=== PATIENT | female | born 1945 | race Caucasian/White ===

== ENCOUNTER 2020-01-01 08:39 | Observation (INO) ==
--- NOTE | 2019-12-29 15:50 | Anesthesiology Consultation ---
Date of Service December 29, 2019 Assessment & Plan (1) Encounter for pre-operative examination: COVID Status: As of 12/28 nurse assessment, patient denies travel to endemic area, known exposure/sick contacts, or symptoms of COVID19. Preoperative COVID19 testing completed on 12/26 at [facility], results NEGATIVE. EKG AM DOS Chart Review Chart Review: Acceptable Risk for Surgery and Patient NOT seen in Pre Admission Testing History Surgery Operation Date: 01/01/20 07:00 Proposed Procedures p Endoscopic Retrograde Cholangiopancreato - Scotty Savage MD s Endoscopic Ultrasonography Upper - Scotty Savage MD Height/Weight Height: 5 ft 2 in Weight: 45.813 kg Allergies Allergy/AdvReac Type Severity Reaction Status Date / Time No Known Allergies Allergy Verified 12/29/19 15:17 Medications Home Medications Medication Instructions Recorded Confirmed Last Taken atorvastatin [Lipitor] 20 mg PO PM 12/29/19 12/29/19 Unknown omeprazole 20 mg PO BID 12/29/19 12/29/19 Unknown Past Medical History Medical History (Updated 12/29/19 @ 15:49 by Juan Rodriguez) Gallbladder & bile duct stone with obstruction Pancreatic mass Prediabetes NO MEDICATION FOR THIS Past Surgical History Surgical History (Updated 12/29/19 @ 15:22 by Lyric William RN) H/O wrist surgery LEFT Social History Smoking Status: Never smoker Do You Dip or Chew Tobacco: No Hx Alcohol Use: No Hx Substance Use: No substance use type: does not use Testing Laboratory Results 12/27/19 WBC: 9.70 H/H: 12.4/36.7 PLATELETS: 256 SODIUM: 138 POTASSIUM: 4.1 CHLORIDE: 98 CO2: 26 BUN: 21 CREATININE: 0.80 GLUCOSE: 141 PT: 13.5 INR: 1.02
[~2020-01-01 08:39] MED LIST: IOVERSOL 50ml IV ONE; LR 15ML/HR IV SCH
--- NOTE | 2020-01-01 08:56 | History & Physical Report ---
Date of Service January 01, 2020 Assessment & Plan (1) Encounter for pre-operative examination: History of Present Illness Primary Care Provider: Toi Harrison Patient with obstructive jaundice, pancreatic head mass, needs EUS/ERCP Allergies Allergy/AdvReac Type Severity Reaction Status Date / Time No Known Allergies Allergy Verified 12/29/19 15:17 Home Medications Home Medications Medication Instructions Recorded Confirmed Type atorvastatin [Lipitor] 20 mg PO PM 12/29/19 12/29/19 History omeprazole 20 mg PO BID 12/29/19 12/29/19 History Past Med/Surg History Medical History (Updated 12/29/19 @ 15:49 by Juan Rodriguez) Gallbladder & bile duct stone with obstruction Pancreatic mass Prediabetes NO MEDICATION FOR THIS Surgical History (Updated 12/29/19 @ 15:22 by Lyric William RN) H/O wrist surgery LEFT Social History Smoking Status: Never smoker Second Hand Exposure: Yes (25 YEARS AGO SMOKED); Do You Dip or Chew Tobacco: No; Hx Alcohol Use: No Hx Substance Use: No Preferred Language: Guatemalan Beliefs That Will Affect Care: None Current Living Situation: Alone Feels Safe at Home: Yes Safety Concerns: Feels Safe At This Time Assistive Devices: Glasses Review of Systems All systems reviewed & are unremarkable except as noted in HPI & below Physical Exam Constitutional: comfortable; no acute distress Respiratory: normal respiratory effort, lungs clear to auscultation Cardiovascular: RRR, no murmur, no edema Gastrointestinal (Abdomen): normal bowel sounds, soft, nontender, no hepatosplenomegaly
[2020-01-01] MEDS ORDERED: ONDANSETRON INJ 2 MG/ML 2 ML VIAL IV PRN ×2 (11:10→17:12)
[2020-01-01] MEDS ORDERED: ATROPINE SULFATE 0.1 MG/ML 10ML SYR IV PRN (11:10)
[2020-01-01] MEDS ORDERED: ePHEDrine sulfate 50 MG/ML AMP IV PRN (11:10)
[2020-01-01] MEDS ORDERED: fentaNYL citrate 100 MCG/2 ML VIAL IV PRN (11:10)
[2020-01-01] MEDS ORDERED: CIPROFLOXACIN 400MG / 200ML D5W IV ONE (11:37)
[2020-01-01] MEDS ORDERED: INDOMETHACIN 50 MG SUPP PR ONE (11:57)
[2020-01-01] MEDS ORDERED: fentaNYL citrate 100 MCG/2 ML VIAL ONE (12:13)
[2020-01-01] MEDS ORDERED: ONDANSETRON INJ 2 MG/ML 2 ML VIAL ONE (13:13)
[2020-01-01] MEDS ORDERED: DEXAMETHASONE SOD INJ 4 MG/ML VIAL ONE (13:13)
[2020-01-01] MEDS ORDERED: NEOSTIGMINE METHYLSULFATE 5 MG/5 ML SYR ONE (13:13)
[2020-01-01] MEDS ORDERED: PROPOFOL IV EMULSION 10 MG/ML 20 ML VIAL IV ONE (13:13)
[2020-01-01] MEDS ORDERED: GLYCOPYRROLATE 0.2 MG/ML VIAL ONE (13:13)
[2020-01-01] MEDS ORDERED: HEPARIN SOD (PORCINE) 1000 UNIT/ML 10 ML VIAL ONE (13:20)
--- NOTE | 2020-01-01 15:25 | Operative Report ---
Post Operative Report Pre & Post Diagnosis Operation Date: 01/01/20 07:00 Pre-Op Diagnosis: Jaundice, RUQ Abdominal Pain Post-Op Diagnosis: Jaundice, RUQ Abdominal Pain I identified the patient and participated in the time-out.: Yes Procedure Operation Date: 01/01/20 07:00 Actual Procedures p Endoscopic Retrograde Cholangiopancreatography - Scotty Savage MD s Endoscopic Ultrasonography Upper - Scotty Savage MD Surgeon Scotty Savage MD Survey Research Associate None Estimated Blood Loss 0 Findings See Below (4 cm pancreatic head mass with complete biliary obstruction.) Specimens Panc mass FNA Description of Procedure EUS/ ERCP I attest to the content of the Intraoperative Record and any orders documented therein. Any exceptions are noted below.
--- NOTE | 2020-01-01 15:37 | GI REPORT ---
Patient Name: Ainsley Borden Procedure Date: 01/01/2020 8:52 AM Date of : 1945 Admit Type: Preadmit Age: 74 Gender: Female Attending MD: Scotty Savage MD Procedure: Upper GI endoscopy Providers: Scotty Savage MD Referring MD: Sharonda Pinedo Md, Zamzam Brumfield Indications: Epigastric abdominal pain Medicines: Propofol per Anesthesia Complications: No immediate complications. Estimated Blood Loss: Estimated blood loss: none. Procedure: Pre-Anesthesia Assessment: - Prior to the procedure, a History and Physical was performed, and patient medications, allergies and sensitivities were reviewed. The patient's tolerance of previous anesthesia was reviewed. - The risks and benefits of the procedure and the sedation options and risks were discussed with the patient. All questions were answered and informed consent was obtained. - Patient identification and proposed procedure were verified prior to the procedure by the physician and the nurse. The procedure was verified in the procedure room. - Pre-procedure physical examination revealed no contraindications to sedation. After obtaining informed consent, the endoscope was passed under direct vision. Throughout the procedure, the patient's blood pressure, pulse, and oxygen saturations were monitored continuously. The Endoscope was introduced through the mouth, and advanced to the second part of duodenum. The upper GI endoscopy was accomplished without difficulty. The patient tolerated the procedure well. Findings: Two 3 mm polyps were found in the upper third of the esophagus, likely esophageal squamous papilloma. The polyp was removed with a cold biopsy forceps. Resection and retrieval were complete. Verification of patient identification for the specimen was done by the physician and nurse using the patient's name and date. The entire examined stomach was normal. The duodenal bulb and second portion of the duodenum were normal. 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 Resected and retrieved. - Normal stomach. - Normal duodenal bulb and second portion of the duodenum. Recommendation: - Perform an upper endoscopic ultrasound (UEUS) today. Scotty Savage MD 01/01/2020 3:37:22 PM This report has been signed electronically. Note Initiated On: 01/01/2020 8:52 AM Number of Addenda: 0 I attest to the content of the Intraoperative Record and orders documented therein, exceptions below {[id number]}
--- NOTE | 2020-01-01 16:02 | Fluoroscopy Report ---
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 There is cannulation of the common bile duct. Injection of co ntrast into the biliary tree. There is moderate intrahepatic biliary ductal dilation with dilation of the common bile duct measuring up to approximately 1.6 cm transversely. There is marked narrowing wi thin the mid to distal common bile duct suggestive of a stricture. Subsequent images demonstrate plac ement of a common bile duct stent which appears to be in satisfactory positioning. There is contrast noted within the duodenum. Contrast is also noted to the right of the common bile duct which appears to be within the gallbladder lumen. IMPRESSION: Fluoroscopic assistance as above. Please see procedural report for further details. ACT 112: Negative or not required by law. The above report was generated using voice recognition software. It may contain grammatical, syntax o r spelling errors. Electronically signed by: Flaco Fischer M.D. 01/01/2020 4:00 PM
[2020-01-01] MEDS ORDERED: IOVERSOL 50ml IV ONE (16:08)
--- NOTE | 2020-01-01 16:13 | Anesthesiology Progress Note ---
Date of Service January 01, 2020 Anesthesia Post Procedure Vital Signs Vital Signs: Temp Pulse Pulse Resp BP BP Pulse Ox 01/01/20 16:00 57 L 17 122/71 99 01/01/20 15:50 57 L 17 123/73 99 01/01/20 15:40 36.4 C L 60 18 124/72 100 01/01/20 10:47 36.8 C 70 18 133/76 99 Transfer of Care Handoff Completed per policy Notes Mental Status: alert / awake / arousable Patient Amnestic to Procedure: Yes Nausea / Vomiting: adequately controlled Pain: adequately controlled Airway Patency, RR, SpO2: stable & adequate BP & HR: stable & adequate Hydration State: stable & adequate Anesthetic Complications: no major complications apparent
[2020-01-01] MEDS ORDERED: PIPERACILL/TAZOBAC CONSULT ACTIVE PRN (16:26)
--- NOTE | 2020-01-01 16:27 | GI REPORT ---
Patient Name: Ainsley Borden Procedure Date: 01/01/2020 8:51 AM Date of : 1945 Admit Type: Preadmit Age: 74 Gender: Female Attending MD: Scotty Savage MD Procedure: Upper EUS Providers: Scotty Savage MD Referring MD: Sharonda Johnson Md Indications: Abnormal ultrasound of the abdomen, Suspected solid pancreatic neoplasm Medicines: General Anesthesia Complications: No immediate complications. Estimated Blood Loss: Estimated blood loss: none. Procedure: Pre-Anesthesia Assessment: - Prior to the procedure, a History and Physical was performed, and patient medications, allergies and sensitivities were reviewed. The patient's tolerance of previous anesthesia was reviewed. - The risks and benefits of the procedure and the sedation options and risks were discussed with the patient. All questions were answered and informed consent was obtained. - Patient identification and proposed procedure were verified prior to the procedure by the physician and the nurse. The procedure was verified in the procedure room. - Pre-procedure physical examination revealed no contraindications to sedation. After obtaining informed consent, the endoscope was passed under direct vision. Throughout the procedure, the patient's blood pressure, pulse, and oxygen saturations were monitored continuously. The scope was introduced through the mouth, and advanced to the second part of duodenum. The upper EUS was accomplished without difficulty. The patient tolerated the procedure well. Findings: ENDOSONOGRAPHIC FINDING: : There was no sign of significant endosonographic abnormality in the ampulla. No mucosal masses were identified. There was dilation in the common bile duct which measured up to 26 mm. There is a complete cutt off of the distal duct due to invasion by the large HOP mass. Extensive hyperechoic material consistent with sludge was visualized endosonographically in the common bile duct and in the gallbladder. There was dilation diffusely throughout the intrahepatic bile duct(s). There was no sign of significant endosonographic abnormality in the visualized portion of the liver. A round mass was identified in the pancreatic head. The mass was hypoechoic. The mass measured 42 mm by 30 mm in maximal cross-sectional diameter. The endosonographic borders were well-defined. There was sonographic evidence suggesting invasion into the portal vein (manifested by invasion), the superior mesenteric vein (manifested by abutment) and the duodenum. Visualization of the SMA was limited due to the large size of the mass however no clear invasion seen. The remainder of the pancreas was examined. The endosonographic appearance of parenchyma and the upstream pancreatic duct indicated a maximum duct diameter of 6.5 mm and parenchymal atrophy. Fine needle biopsy was performed. Color Doppler imaging was utilized prior to needle puncture to confirm a lack of significant vascular structures within the needle path. Five passes were made with the 25 gauge ClariFI EchoTip Ultra biopsy needle using a transduodenal approach. A visible core of tissue was obtained. The cellularity of the specimen was adequate. Final cytology results are pending. Verification of patient identification for the specimen was done by the physician and nurse using the patient's name and date. This was staged T3 N0 Mx by endosonographic criteria. The staging applies if malignancy is confirmed. There was no sign of significant endosonographic abnormality in the visualized portion of the left adrenal gland. There was no sign of significant endosonographic abnormality involving the celiac trunk. Impression: - A 4 cm mass was identified in the pancreatic head. Tissue was obtained from this exam. The preliminary diagnosis is suspicious for adenocarcinoma. Fine needle biopsy performed. - There was dilation in the common bile duct which measured up to 26 mm. Complete invasion of the entire distal duct by the mass. - Hyperechoic material consistent with sludge was visualized endosonographically in the common bile duct and in the gallbladder. - There was dilation in the intrahepatic bile ducts, diffusely. - There was no evidence of significant pathology in the visualized portion of the liver. - Endosonographic images of the left adrenal gland were unremarkable. - The celiac trunk was endosonographically normal. Recommendation: - Await cytology results. - Perform an ERCP today. Scotty Savage MD 01/01/2020 4:26:36 PM This report has been signed electronically. Note Initiated On: 01/01/2020 8:51 AM Number of Addenda: 0 I attest to the content of the Intraoperative Record and orders documented therein, exceptions below {[id number]}
[2020-01-01] MEDS ORDERED: ALUMINUM/MAGNESIUM SUSP 30 ML UDC PO PRN (17:12)
[2020-01-01] MEDS ORDERED: MAGNESIUM HYDROXIDE SUSP 30 ML UDC PO PRN (17:12)
[2020-01-01] MEDS ORDERED: ACETAMINOPHEN 325 MG TAB PO PRN (17:12)
[2020-01-01] MEDS ORDERED: POLYETHYLENE (MIRALAX) 17 GM PACK PO PRN (17:12)
--- NOTE | 2020-01-01 17:22 | GI REPORT ---
Patient Name: Ainsley Borden Procedure Date: 01/01/2020 8:52 AM Date of : 1945 Admit Type: Preadmit Age: 74 Gender: Female Attending MD: Scotty Savage MD Procedure: ERCP Providers: Scotty Savage MD Referring MD: Sharonda Pinedo Md, Zamzam Brumfield Indications: Abnormal endoscopic ultrasound of the biliary system, Jaundice, Malignant tumor of the head of pancreas, Bile duct stricture Medicines: General Anesthesia Complications: No immediate complications. Estimated Blood Loss: Estimated blood loss: none. Procedure: Pre-Anesthesia Assessment: - Prior to the procedure, a History and Physical was performed, and patient medications, allergies and sensitivities were reviewed. The patient's tolerance of previous anesthesia was reviewed. - The risks and benefits of the procedure and the sedation options and risks were discussed with the patient. All questions were answered and informed consent was obtained. - Patient identification and proposed procedure were verified prior to the procedure by the physician and the nurse. The procedure was verified in the procedure room. - Pre-procedure physical examination revealed no contraindications to sedation. After obtaining informed consent, the scope was passed under direct vision. Throughout the procedure, the patient's blood pressure, pulse, and oxygen saturations were monitored continuously. The Scope was introduced through the mouth, and advanced to the duodenum without successful cannulation. The patient tolerated the procedure well. The ERCP was technically difficult and complex due to difficulty passing guidewires through biliary ductal stenosis. Findings: The quality control chemist film was normal. The esophagus was successfully intubated under direct vision. The scope was advanced to a normal major papilla in the descending duodenum without detailed examination of the pharynx, larynx and associated structures, and upper GI tract. The upper GI tract was grossly normal. The bile duct could not be cannulated with the short-nosed traction sphincterotome and guidewire despite multiple attempt and despite deep engagement of the sphincterotome in the ampulla. Contrast was injected and the was extravasation of contrast without filling of the duct suggestive of a false tract. Because deep biliary cannulation and wire passage towards the proximal extent of the bile duct was attempted but not achieved, preparations were made for a rendezvous maneuver. The duodenoscope was removed and exchanged for a therapeutic echoendoscope, which was inserted. The extrahepatic bile duct was punctured using a 19 gauge needle under endosonographic and radiologic guidance through a transduodenal approach. Bile was aspirated. Next, the bile duct was injected with contrast, and a cholangiogram was obtained under fluoroscopy. Contrast extended to the left and right intrahepatic bile ducts. The distal common bile duct was completely obstructed with no flow of contrast into the duodenum. A 0.035 inch straight standard wire was passed anterograde through the needle but failed to traverse the obstruction. Given that the tumor is locally advanced and unresectable and enough length of the common bile duct above the stricture, decision was made to perform EUS guided bile duct drainage. The needle was removed and the puncture area was successfully dilated with a 4 mm balloon dilator. One 10 mm by 6 cm covered metal biliary stent (Viabil) was placed into the common bile duct. Black bile and sludge flowed through the stent. The stent was in good position. I personally interpreted the fluoroscopy images. Impression: - Complete obstruction of the distal common bile duct due to a large infiltrating HOP mass. Failed bile duct cannulation due to the long stricture. - Biliary rendezvous performed however neither contrast nor the guidewire could pass through the stricture into the duodenum. - EUS guided transduodenal biliary drainage (choledochoduodenostomy) performed and a 6 cm fully covered metal biliary stent was placed into the common bile duct. Recommendation: - Admit the patient to [facility] for observation till tomorrow in view of current illness. - Clear liquid diet today. - Perform CT scan (computed tomography) of the chest and abdomen (pancreas protocol for staging) with contrast today for staging. - Refer to an oncologist and surgical oncology as OP. - IV Hydration. - Start IV Zosyn while in the hospital. - Repeat Labs (CBC,CMP) tomorrow. Scotty Savage MD 01/01/2020 5:21:57 PM This report has been signed electronically. Note Initiated On: 01/01/2020 8:52 AM Number of Addenda: 0 I attest to the content of the Intraoperative Record and orders documented therein, exceptions below {[id number]}
--- NOTE | 2020-01-01 17:40 | History & Physical Report ---
Date of Service January 01, 2020 Assessment & Plan (1) RUQ pain: (2) Jaundice: This is a 74yo F with a PMH of HLD and recent RUQ and jaundice who was evaluated via ERCP today due to concern for pancreatic adenocarcinoma. -S/p EUS/ERCP - found to have complete obstruction of the distal common bile duct due to large infiltrating mass and is s/p biliary stent placement -Observation med/surg for continued work-up and CT scans for staging purposes -Continue IV fluids and IV Zosyn. Clear liquid diet. Repeat CBC and CMP in the morning -Needs to be referred to oncology and surgical oncology as outpatient -GI service consulted (3) HLD (hyperlipidemia): Continue statin (4) Prediabetes: A1c of 5.7. Not on home medications. Repeat glucose on CMP in AM DVT Ppx: SCDs Code status: FULL PCP: Rusty Dispo: Observation med/surg. Plan to return home once medically stable. Patient seen in collaboration with Dr. Abdul. Please see addendum. History of Present Illness Chief Complaint: abd pain, jaundice Primary Care Provider: Sharonda Pinedo MD This is a 74yo F with a PMH of HLD and persistent abdominal discomfort who was evaluated via ERCP today. Follows with Dr. Ojeda in clinic and had been experiencing months of abdominal discomfort and nausea with ~10 pound weight loss in the past month. Patient's daughter also noted jaundice within the last few weeks with dark urine and pale stool. Outpatient RUQ with pancreatic mass with biliary ductal dilatation and main pancreatic ductal dilatation highly concerning for pancreatic adenocarcinoma. Underwent ERCP today and found to have complete obstruction of the distal common bile duct due to large infiltrating mass and is s/p biliary stent placement. Patient was admitted to [facility] for continued work-up and CT scans for staging purposes as well as IV fluids and IV Zosyn. Clear liquid diet. Repeat CBC and CMP in the morning. When evaluated on the floor, patient is comfortable. Minimal RUQ pain. Denies fever, chills, headache, lightheadedness, visual changes, cough, chest pain, palpitations, shortness of breath, nausea, vomiting, dysuria, constipation or diarrhea. Allergies Allergy/AdvReac Type Severity Reaction Status Date / Time No Known Allergies Allergy Verified 01/01/20 10:42 Home Medications Home Medications Medication Instructions Recorded Confirmed Type atorvastatin [Lipitor] 20 mg PO PM 12/29/19 01/01/20 History omeprazole 20 mg PO BID 12/29/19 01/01/20 History Past Med/Surg History Medical History HLD (hyperlipidemia) Osteopenia Prediabetes NO MEDICATION FOR THIS A1C 5.7 Surgical History H/O wrist surgery LEFT Family History Father Colorectal cancer Social History Smoking Status: Never smoker Second Hand Exposure: Yes (25 YEARS AGO SMOKED); Do You Dip or Chew Tobacco: No; Hx Alcohol Use: No Hx Substance Use: No Preferred Language: [place] Beliefs That Will Affect Care: None marital status: / Current Living Situation: Alone Feels Safe at Home: Yes Safety Concerns: Feels Safe At This Time Assistive Devices: Glasses Review of Systems Review of Systems: At least ten systems reviewed and negative except as noted in the HPI. Physical Exam Physical Exam: General Appearance: vitals as above, NAD, sitting up in bed, conversing easily, thin Head: normocephalic, atraumatic Eyes: normal inspection, PERRL, conjunctivae normal +icteric sclerae ENT: external ear and nose normal, oropharynx normal Neck: normal visual inspection, trachea midline, no thyromegaly Respiratory: normal respiratory effort, coarse breath sounds bilateral bases R>L. No accessory muscle use Cardiovascular: regular rate, rhythm, no murmur, normal peripheral pulses, no BLE edema. Vessels: no JVD Chest: normal inspection of chest Abdomen/GI: normal bowel sounds, soft, mild RUQ TTP, no guarding, no hepatosplenomegaly Extremities/Musculoskeletal: no cyanosis or clubbing, extremities motor strength 5/5 Neurologic: PERRL, EOMI, accommodation nl, no face palsy, no dysarthria, CN's II-XI intact bilaterally and moves all extremities Psychiatric: A+Ox3, euthymic affect Skin: no rashes, warm/dry, +jaundice Results & Data Results & Data ([facility]) Vital Signs (Past 12 Hours) Vital Signs Temp Pulse Pulse Resp BP BP Pulse Ox 01/01/20 17:30 62 18 109/66 96 01/01/20 17:15 63 18 116/69 96 01/01/20 17:00 65 17 106/60 95 01/01/20 16:45 67 17 108/55 L 96 01/01/20 16:30 65 17 115/69 96 01/01/20 16:20 36.4 C L 59 L 17 117/69 95 01/01/20 16:10 60 17 119/67 96 01/01/20 16:00 57 L 17 122/71 99 01/01/20 15:50 57 L 17 123/73 99 01/01/20 15:40 36.4 C L 60 18 124/72 100 01/01/20 10:47 36.8 C 70 18 133/76 99 Laboratory Results BMP 01/01/20 18:24 Creatinine 0.62 Code Status & VTE Plan VTE Prophylaxis Plan VTE Prophylaxis will be ordered: Yes Supervising Physician Co-Signing Physician Notes Attending Addendum: care coordinated with REY Robison please refer to her notes for full details, I agree with her notes patient seen and examined, records reviewed by myself as well on exam, patient seen resting in bed, comfortable, alert, oriented x 3 states she feels fine overall denies abdominal pain, nausea/vomiting, chest pain, dyspnea, cough no other symptoms VS noted and reviewed oriented x 3 , not in distress, speaks in sentences with no effort nor accessory muscle use normal rate, regular rhythm, no murmurs clear breath sounds bilaterally non distended, soft, nontender no bipedal edema, erythema, warmth no neuro deficits (+) jaundiced Crea 0.62 ASSESSMENT AND PLAN> COMMON BILE DUCT OBSTRUCTION, PANCREATIC HEAD MASS s/p ERCP, Biliary stent placement 01/01/[address] chest and abdomen per GI other diagnoses and plan of care as per REY Robison's notes Juan Abdul MD
[2020-01-01] MEDS ORDERED: PIPERACILLIN/TAZOBACTAM 3.375 GM in DEXTROSE 5% 100 ML IV ONE (18:15)
[2020-01-01 18:53] LABS: Creatinine Clr Calc Pharmacy 57.6 ml/min; Est GFR (Non-African American) 88.8
[2020-01-01] MEDS ORDERED: traMADol HCL 50 MG TABLET PO PRN (19:23)
[2020-01-01] MEDS: LACTATED RINGER'S 1,000 ML IV SCH (20:05)
--- NOTE | 2020-01-01 20:20 | XRay Report ---
XR chest 1V portable HISTORY: 74 years-old Female coarse breath sounds acute jaundice COMPARISON: None TECHNIQUE: Portable AP view the chest FINDINGS: Cardiac silhouette is mildly enlarged. Mild interstitial coarsening, likely chronic. No pneumothorax, pleural effusion, airspace consolidation or overt pulmonary edema. Degenerative changes of the shoul ders and spine. IMPRESSION: No acute process. ACT 112: Negative or not required by law. The above report was generated using voice recognition software. It may contain grammatical, syntax o r spelling errors. Electronically signed by: Flaco Fischer M.D. 01/01/2020 8:19 PM
[2020-01-01] MEDS ORDERED: IOVERSOL 100ml IV ONE (21:30)
--- NOTE | 2020-01-01 22:34 | Electrocardiogram Report ---
Test Reason : Blood Pressure : / mmHG Vent. Rate : 070 BPM Atrial Rate : 070 BPM P-R Int : 126 ms QRS Dur : 084 ms QT Int : 408 ms P-R-T Axes : 037 062 060 degrees QTc Int : 440 ms Normal sinus rhythm Nonspecific T wave abnormality No previous ECGs available Confirmed by Thomas Rdz ([id number]) on 01/01/2020 10:33:50 PM Referred By: Scotty Savage Confirmed By:Thomas Rdz
[2020-01-01] MEDS: PIPERACILLIN/TAZOBACTAM 3.375 GM in DEXTROSE 5% 100 ML IV SCH (23:35)
[2020-01-02] MEDS: LACTATED RINGER'S 1,000 ML IV SCH ×2 (03:36→10:10)
[2020-01-02] MEDS ORDERED: CIPROFLOXACIN / D5W 400 MG/200 ML BAG IV SCH (06:00)
[2020-01-02 06:21] LABS: Basophils # (auto) 0.01 K/uL (0-0.2); Basophils % (auto) 0.1 %; Hematocrit (blood only) 32.2 % (37-47); Hemoglobin 10.4 g/dL (12.0-16.0); Immature Granulocytes # (auto) 0.05 K/uL (0.00-0.02); Immature Granulocytes % (auto) 0.4 %; Lymphocytes # (auto) 1.13 K/uL (1.2-3.4); Lymphocytes % (auto) 9.2 %; Mean Corpuscular Hemoglobin 29.8 pg (25-34); Mean Corpuscular Hgb Conc 32.3 g/dL (32-36); Mean Corpuscular Volume 92.3 fL (80-100); Monocytes # (auto) 1.74 K/uL (0.11-0.59); Monocytes % (auto) 14.2 %; Neutrophils # (auto) 9.31 K/uL (1.4-6.5); Neutrophils % (auto) 76.1 %; Platelet Count 254 K/uL (130-400); RDW Standard Deviation 56.9 fL (36.4-46.3); Red Blood Count 3.49 M/uL (4.2-5.4); White Blood Count 12.24 K/uL (4.8-10.8)
[2020-01-02 07:04] LABS: Albumin Globulin Ratio 0.5 (0.9-2); Albumin Level 1.8 gm/dl (3.4-5.0); BUN Creatinine Ratio 21.6 (10-20); Bilirubin,Total 12.6 mg/dl (0.2-1); Calcium 8.5 mg/dl (8.5-10.1); Creatinine Clr Calc Pharmacy 67.4 ml/min; Est GFR (African American) 108.4; Est GFR (Non-African American) 93.5; Globulin 3.3 gm/dl (2.5-4.0); Potassium 3.8 mmol/L (3.5-5.1); Total Protein 5.1 gm/dl (6.4-8.2)
[2020-01-02] MEDS: PIPERACILLIN/TAZOBACTAM 3.375 GM in DEXTROSE 5% 100 ML IV SCH (07:42)
--- NOTE | 2020-01-02 07:49 | CT Scan Report ---
CHEST CT WITH CONTRAST CT DOSE: 414.63 mGy.cm HISTORY: Jaundice. Pancreatitis. r/o metastatic dz TECHNIQUE: Multiaxial CT images of the chest were performed following the intravenous administration of contrast. A dose lowering technique was utilized adhering to the principles of ALARA. COMPARISON: None. FINDINGS: No suspicious lytic or blastic osseous lesions. Small amount of fluid and a small amount of pneumoperitoneum is noted. This is better appreciated on the same day abdomen and pelvis CT. There a ppears to be pneumobilia. The visualized spleen is unremarkable. A few subcentimeter thyroid nodules. These are of doubtful clinical significance. No mediastinal or hilar lymphadenopathy. The heart is n ormal in size. No pleural or pericardial effusions. The main pulmonary arteries are patent. Normal ca liber thoracic aorta with no evidence for dissection. No axillary lymphadenopathy. Mild body wall jaylin ma. Normal caliber esophagus. Bibasilar linear densities favor subsegmental atelectasis or scarring. Scattered calcified granulomas are noted within the lungs. No pneumothorax. The central airways are p atent. No suspicious pulmonary nodules identified. IMPRESSION: 1. Pneumoperitoneum. This is better appreciated on the same day abdomen and pelvis CT. 2. No evidence for metastatic disease within the chest. ACT 112: Negative or not required by law. Electronically signed by: Helder Holland M.D. 01/02/2020 7:48 AM
--- NOTE | 2020-01-02 08:33 | CT Scan Report ---
CT OF THE ABDOMEN AND PELVIS WITH CONTRAST CLINICAL HISTORY: Grade mass. Evaluate for metastatic disease. COMPARISON STUDY: None. TECHNIQUE: Following IV administration of 93 mL of Optiray-320, axial images of the abdomen and pelvi s were obtained from the lung bases to the proximal femurs. Images were reviewed in the axial, sagitt al, and coronal planes. IV contrast was administered without complication. Automated exposure contro l was utilized for the study. A dose lowering technique was utilized adhering to the principles of A AYESHA. Oral contrast was administered. FINDINGS: Please note that the chest CT will be reported separately. No suspicious hepatic lesions ar e present. A 5 mm subcapsular right hepatic lobe lesion is too small to characterize but likely refle cts a cyst. Pneumobilia is expected. Mild to moderate intrahepatic biliary ductal dilatation is prese nt. Note is made of a metallic stent which extends from the duodenum to the extrahepatic common bile duct. This appears appropriately positioned. Multiple locules of extraluminal gas is noted. This is p redominantly retroperitoneal in location. Infiltration and a small amount of fluid centered on the pa ncreatic head extending into the right anterior pararenal space is also noted. There is trace ascites . No rim-enhancing fluid collection is noted. Note is made of dilatation of the pancreatic duct which measures 1 cm in caliber. There is contrast within the pancreatic duct with abrupt caliber change at the level the pancreatic head. There is suggestion of a subtle hypodense pancreatic head mass that m easures approximately 3.7 cm. The main, left and right portal veins are patent. Evaluation for metast atic disease is somewhat difficult given peripancreatic infiltration however superior mesenteric spring ry is not encased. The main, left and right portal veins are patent. No abdominal or pelvic lymphaden opathy is present. There is no evidence for a bowel obstruction. There is contrast within the latter. Note is made of a 2 cm fibroid. No suspicious osseous lesions are present. Major vasculature is simental nt. There is no hydronephrosis. Note is made of a 7 mm suspected left renal cyst. IMPRESSION: 1. Pancreatic head mass, measuring approximately 3.7 cm, with abrupt cut off of the main pancreatic d uct and associated biliary ductal dilatation. This is highly suggestive of adenocarcinoma. No evidenc e of metastatic disease. Major vessels patent. No CT evidence for unresectability however evaluation is difficult given adjacent fluid. Short-term imaging follow-up might be considered with MRI. 2. Placement of a metallic stent which extends from the duodenum to the extrahepatic bile duct with e xpected pneumobilia and a small amount of extraluminal gas and fluid. Findings discussed with Dr. Samantha hilario at time of dictation. ACT 112: Positive. There are findings on this exam that require communication between the performing entity and the patient following Patient Test Result Information Act ([place] Act 112) guidelines. Electronically signed by: Chaz Guzman M.D. 01/02/2020 8:32 AM
--- NOTE | 2020-01-02 09:31 | Gastroenterology Progress Note ---
Date of Service January 02, 2020 Assessment & Plan (1) Jaundice: (2) Mass of pancreas: Pt is a 74 y/o female w jaundice, weight loss and LFTs elevation. She underwent EUS/ERCP yesterday - found to have large pancreas head mass, complete obstruction of CBD. EUS guided transduodenum, biliary drainage w fully covered metal stent placement in biliary duct done. She was admitted overnight for observation and doing well. LFTs trending down, no abd pain, n/v. CT chest/abd/pelvis w/o signs of metastatic disease - FL diet for lunch and then advance as tolerated - No contraindication for DC home today - F/U path - Refer to Heme/Onc & Surgical oncology in outpt for further management/eval - Pls DC home with 7 days course of Cipro/Flagyl antibx Admission and Anticipated Discharge Date Admission Date: January 02, 2020 Supervising Physician Co-Signing Physician Notes I performed a history and physical examination of the patient today, including specifically on physical exam - soft abdomen. I have discussed the patient's management with the advanced practitioner. Please refer to the nurse practitioner's note for the documented findings and plan of care. Doing great today, bilirubin trending down. Imaging reviewed and has expected post choledochoduodenostomy changes. Complete 7 days of PO ABx. Clear liquids for today and advance tomorrow. Recall Gi if needed Subjective Pt doing well overnight. Denies fever, chills abd pain, n/v. LFTs trending down, afebrile overnight Review of Systems Review of Systems: All systems reviewed & are unremarkable except as noted in HPI & below Physical Exam Constitutional: WD/WN, vitals as above well groomed, cooperative and comfortable Eyes: + scleral abnormality (icteric sclera), PERRL and EOM intact bilaterally ENMT: external ear and nose normal, oropharynx normal Respiratory: normal respiratory effort, lungs clear to auscultation Cardiovascular: RRR, no murmur, no edema Gastrointestinal (Abdomen): normal bowel sounds, soft, nontender, no hepatosplenomegaly Skin: no rashes, warm and dry + jaundice Neurologic: Motor/Sensory: no asterixis Psychiatric: A+Ox3, euthymic affect Lymphatic: no lymphedema Results & Data ([facility]) Vital Signs (Past 12 Hours) Vital Signs Temp Pulse Pulse Resp BP Pulse Ox 01/02/20 07:46 36.5 C 66 18 100/59 L 98 01/01/20 22:43 36.5 C 62 16 93/53 L 94
--- NOTE | 2020-01-02 15:11 | Hospitalist Progress Note ---
Date of Service January 02, 2020 Assessment & Plan (1) RUQ pain: (2) Jaundice: Patient is a 74 yr female with H/O HLD and recent RUQ and jaundice who was evaluated via ERCP today due to concern for pancreatic adenocarcinoma. Pancreatic mass Jaundice --CT ABD:Pancreatic head mass, measuring approximately 3.7 cm, with abrupt cut off of the main pancreatic duct and associated biliary ductal dilatation. This is highly suggestive of adenocarcinoma. No evidence of metastatic disease. Major vessels patent. No CT evidence for unresectability however evaluation is difficult given adjacent fluid. Short-term imaging follow-up might be considered with MRI. Placement of a metallic stent which extends from the duodenum to the extrahepatic bile duct with expected pneumobilia and a small amount of extraluminal gas and fluid. Findings discussed with Dr. Savage at time of dictation. --CT Chest:Pneumoperitoneum. This is better appreciated on the same day abdomen and pelvis CT. No evidence for metastatic disease within the chest. --EUS:A 4 cm mass was identified in the pancreatic head. Tissue was obtained from this exam. The preliminary diagnosis is suspicious for adenocarcinoma. Fine needle biopsy performed. There was dilation in the common bile duct which measured up to 26 mm. Complete invasion of the entire distal duct by the mass. Hyperechoic material consistent with sludge was visualized endosonographically in the common bile duct and in the gallbladder. There was dilation in the intrahepatic bile ducts, diffusely. There was no evidence of significant pathology in the visualized portion of the liver. Endosonographic images of the left adrenal gland were unremarkable. The celiac trunk was endosonographically normal. ERCP:Complete obstruction of the distal common bile duct due to a large infiltrating HOP mass. Failed bile duct cannulation due to the long stricture. Biliary rendezvous performed however neither contrast nor the guidewire could pass through the stricture into the duodenum. EUS guided transduodenal biliary drainage (choledochoduodenostomy) performed and a 6 cm fully covered metal biliary stent was placed into the common bile duct. S/p EUS/ERCP - found to have complete obstruction of the distal common bile duct due to large infiltrating mass and is s/p biliary stent placement Received IV Zosyn>> plan to transition to Sandra Reyna to complete 7-day course Full liquid diet today Advance diet tomorrow as tolerated GI reviewed CT findings with radiology--no concerns for now Pathology pending Needs follow-up with GI upon discharge Will need repeat CMP in 1 week as outpatient Likely need to follow-up with oncology, surgical oncology as outpatient if pathology suggestive of malignancy (3) HLD (hyperlipidemia): Continue statin (4) Prediabetes: A1c of 5.7. Not on home medications. DVT Px: SCDs Code status: FULL PCP: Rusty Admission and Anticipated Discharge Date Admission Date: January 02, 2020 Subjective Patient is seen and examined bedside States feeling better today Discussed with gastroenterology today Plan to continue on full liquid diet today and advance as tolerated tomorrow Denies chest pain, shortness of breath, dizziness, nausea, abdominal pain Offers no other complaints Review of Systems Review of Systems: All systems reviewed & are unremarkable except as noted in HPI & below Physical Exam Physical Exam: Physical Exam: Vitals signs as noted above General Appearance:Thin, frail, no apparent distress Head: normocephalic, Atraumatic, +Icteric Eyes: normal inspection, EOMI, PERRL Neck: supple, Trachea midline Respiratory/Chest: Normal breath sounds, CTA Cardiovascular: S1, S2, No murmur Abdomen/GI:Soft, Non tender, Bowel sounds present Extremities/Musculoskelatal:normal inspection, no edema Neurologic/Psych:AAOX3, grossly no focal neurological deficits Skin: normal color, warm, +Icteric Results & Data Results & Data ([facility]) Vital Signs (Past 12 Hours) Vital Signs Temp Pulse Resp BP Pulse Ox 01/02/20 07:46 36.5 C 66 18 100/59 L 98 Laboratory Results Short CBC 01/02/20 Range/Units 06:04 WBC 12.24 H (4.8-10.8) K/uL Hgb 10.4 L (12.0-16.0) g/dL Hct 32.2 L (37-47) % Plt Count 254 (130-400) K/uL BMP 01/01/20 01/02/20 18:24 06:04 Sodium 136 Potassium 3.8 Chloride 101 Carbon Dioxide 30 BUN 11 Creatinine 0.62 0.53 L Glucose 151 H Calcium 8.5 Liver Function 01/02/20 Range/Units 06:04 Total Bilirubin 12.6 H (0.2-1) mg/dl AST 190 H (15-37) U/L ALT 257 H (12-78) U/L Alkaline Phosphatase 849 H (45-117) U/L Albumin 1.8 L (3.4-5.0) gm/dl
--- NOTE | 2020-01-02 15:23 | Discharge Summary ---
Date of Service January 02, 2020 Admission HPI Per Admitting Provider This is a 74yo F with a PMH of HLD and persistent abdominal discomfort who was evaluated via ERCP today. Follows with Dr. Ojeda in clinic and had been experiencing months of abdominal discomfort and nausea with ~10 pound weight loss in the past month. Patient's daughter also noted jaundice within the last few weeks with dark urine and pale stool. Outpatient RUQ with pancreatic mass with biliary ductal dilatation and main pancreatic ductal dilatation highly concerning for pancreatic adenocarcinoma. Underwent ERCP today and found to have complete obstruction of the distal common bile duct due to large infiltrating mass and is s/p biliary stent placement. Patient was admitted to [facility] for continued work-up and CT scans for staging purposes as well as IV fluids and IV Zosyn. Clear liquid diet. Repeat CBC and CMP in the morning. When evaluated on the floor, patient is comfortable. Minimal RUQ pain. Denies fever, chills, headache, lightheadedness, visual changes, cough, chest pain, palpitations, shortness of breath, nausea, vomiting, dysuria, constipation or diarrhea. Admission Exam Per Admitting Provider Physical Exam Physical Exam: General Appearance: vitals as above, NAD, sitting up in bed, conversing easily, thin Head: normocephalic, atraumatic Eyes: normal inspection, PERRL, conjunctivae normal +icteric sclerae ENT: external ear and nose normal, oropharynx normal Neck: normal visual inspection, trachea midline, no thyromegaly Respiratory: normal respiratory effort, coarse breath sounds bilateral bases R>L. No accessory muscle use Cardiovascular: regular rate, rhythm, no murmur, normal peripheral pulses, no BLE edema. Vessels: no JVD Chest: normal inspection of chest Abdomen/GI: normal bowel sounds, soft, mild RUQ TTP, no guarding, no hepatosplenomegaly Extremities/Musculoskeletal: no cyanosis or clubbing, extremities motor strength 5/5 Neurologic: PERRL, EOMI, accommodation nl, no face palsy, no dysarthria, CN's II-XI intact bilaterally and moves all extremities Psychiatric: A+Ox3, euthymic affect Skin: no rashes, warm/dry, +jaundice Principal Diagnosis Pancreatic mass Obstructive jaundice Transaminitis Pneumoperitoneum Discharge Data Allergies Allergy/AdvReac Type Severity Reaction Status Date / Time No Known Allergies Allergy Verified 01/01/20 10:42 Consultations 10/26/20 17:12 Consult Gastroenterology Routine Procedures Performed Operation Date: 01/01/20 07:00 Actual Procedures p Endoscopic Retrograde Cholangiopancreatography - Scotty Savage MD s Endoscopic Ultrasonography Upper - Scotty Savage MD --CT ABD:Pancreatic head mass, measuring approximately 3.7 cm, with abrupt cut off of the main pancreatic duct and associated biliary ductal dilatation. This is highly suggestive of adenocarcinoma. No evidence of metastatic disease. Major vessels patent. No CT evidence for unresectability however evaluation is difficult given adjacent fluid. Short-term imaging follow-up might be considered with MRI. Placement of a metallic stent which extends from the duodenum to the extrahepatic bile duct with expected pneumobilia and a small amount of extraluminal gas and fluid. Findings discussed with Dr. Savage at time of dictation. --CT Chest:Pneumoperitoneum. This is better appreciated on the same day abdomen and pelvis CT. No evidence for metastatic disease within the chest. --EUS:A 4 cm mass was identified in the pancreatic head. Tissue was obtained f rom this exam. The preliminary diagnosis is suspicious for adenocarcinoma. Fine needle biopsy performed. There was dilation in the common bile duct which measured up to 26 mm. Complete invasion of the entire distal duct by the mass. Hyperechoic material consistent with sludge was visualized endosonographically in the common bile duct and in the gallbladder. There was dilation in the intrahepatic bile ducts, diffusely. There was no evidence of significant pathology in the visualized portion of the liver. Endosonographic images of the left adrenal gland were unremarkable. The celiac trunk was endosonographically normal. ERCP:Complete obstruction of the distal common bile duct due to a large infiltrating HOP mass. Failed bile duct cannulation due to the long stricture. Biliary rendezvous performed however neither contrast nor the guidewire could pass through the stricture into the duodenum. EUS guided transduodenal biliary drainage (choledochoduodenostomy) performed and a 6 cm fully covered metal biliary stent was placed into the common bile duct. Ordered Studies 01/01/20 08:47 US upper EUS PACS images Routine 01/01/20 14:30 FL ERCP biliary ductal Routine 01/01/20 16:26 CT abd pelvis oral and IV con Routine CT chest w con Routine Hospital Course (1) RUQ pain: (2) Jaundice: Patient is a 74 yr female with H/O HLD and recent RUQ and jaundice who was evaluated via ERCP today due to concern for pancreatic adenocarcinoma. Pancreatic mass Obstructive Jaundice Transaminitis Pneumoperitoneum --CT ABD:Pancreatic head mass, measuring approximately 3.7 cm, with abrupt cut off of the main pancreatic duct and associated biliary ductal dilatation. This is highly suggestive of adenocarcinoma. No evidence of metastatic disease. Major vessels patent. No CT evidence for unresectability however evaluation is difficult given adjacent fluid. Short-term imaging follow-up might be considered with MRI. Placement of a metallic stent which extends from the duodenum to the extrahepatic bile duct with expected pneumobilia and a small amount of extraluminal gas and fluid. Findings discussed with Dr. Savage at time of dictation. --CT Chest:Pneumoperitoneum. This is better appreciated on the same day abdomen and pelvis CT. No evidence for metastatic disease within the chest. --EUS:A 4 cm mass was identified in the pancreatic head. Tissue was obtained from this exam. The preliminary diagnosis is suspicious for adenocarcinoma. Fine needle biopsy performed. There was dilation in the common bile duct which measured up to 26 mm. Complete invasion of the entire distal duct by the mass. Hyperechoic material consistent with sludge was visualized endosonographically in the common bile duct and in the gallbladder. There was dilation in the intrahepatic bile ducts, diffusely. There was no evidence of significant pathology in the visualized portion of the liver. Endosonographic images of the left adrenal gland were unremarkable. The celiac trunk was endosonographically normal. ERCP:Complete obstruction of the distal common bile duct due to a large infiltrating HOP mass. Failed bile duct cannulation due to the long stricture. Biliary rendezvous performed however neither contrast nor the guidewire could pass through the stricture into the duodenum. EUS guided transduodenal biliary drainage (choledochoduodenostomy) performed and a 6 cm fully covered metal biliary stent was placed into the common bile duct. S/p EUS/ERCP - found to have complete obstruction of the distal common bile duct due to large infiltrating mass and is s/p biliary stent placement Received IV Zosyn>> plan to transition to Cipro Flagyl to complete 7-day course Full liquid diet today Advance diet tomorrow as tolerated GI reviewed CT findings (Pneumoperitoneum) with radiology--no concerns for now as per GI --Likely expected from ERCP Cytology pending Needs follow-up with GI upon discharge Will need repeat CMP in 1 week as outpatient Likely need to follow-up with oncology, surgical oncology as outpatient if pathology suggestive of malignancy (3) HLD (hyperlipidemia): Continue statin (4) Prediabetes: A1c of 5.7. Not on home medications. DVT Px: SCDs Code status: FULL PCP: Rusty Total Time Total Time Spent Total Time Spent (In Minutes): 42 minutes Total Time Includes: Examination of the Patient, Discharge Planning, Medication Reconciliation, Communication With Other Providers and Other Discharge Plan Discharge Items Patient Disposition: Home - Self-Care Reason For Visit: BILIARY OBSTRUCTION, JAUNDICE Discharge Diagnosis: Pancreatic mass Obstructive jaundice Transaminitis Activity: Per Instructions section Exercise/Sports: Gradually increase as tolerated Non-emergency contact: Primary Care Provider and [employer] Worker Call non-emergency contact if: you have any medication questions, your symptoms worsen, your pain is not controlled, your pain is worsening, your pain is unusual for you, your pain is concerning for you and you have a fever Follow-up/Referrals: Sharonda Rain MD [Primary Care Provider] - 01/08/20 1:00 pm Diet: Full liquid Ambulatory Orders: Comprehensive Metabolic Panel (Routine) Timeframe: 1 Week Location: Determined by Patient Ordered By: Jewel Melo Attending Provider Instructions: Follow-up with your primary care physician Dr. Sai Pinedo on January 08, 2020 at 1 PM Follow-up with your engineering analyst Dr. Savage as recommended Get Blood Test (comprehensive metabolic panel) in 1 week and follow-up with your engineering analyst with results Complete antibiotic course ciprofloxacin, Flagyl for 7 more days as recommended by your physician Your cytology results are pending at the time of discharge. Follow-up with your physician for results. Continue full liquid diet today. Can start regular diet tomorrow as tolerated. Your atorvastatin is discontinued secondary to elevated liver enzymes. Discussed with the physician for further advice. Seek immediate medical attention if your symptoms reoccur or worsen Pending Studies at Discharge: Yes Studies:: Cytology Stand-Alone Forms: [employer], Smoking Cessation Medications and DC Order Prescriptions: New metronidazole 500 mg Tablet 500 mg PO Q8H 7 Days Qty: 21 RF: 0 ciprofloxacin HCl 500 mg Tablet 500 mg PO BID Qty: 14 RF: 0 Continued omeprazole 20 mg Capsule,Delayed Release(Dr/Ec) 20 mg PO BID RF: 0 Discontinued atorvastatin [Lipitor] 20 mg Tablet 20 mg PO PM RF: 0 Discharge Orders: Discharge Order (Routine); Ordered 01/02/20 Ordered By: Jewel Gonzalez/Other Patient Handouts: Full Liquid Diet Dc Admission Data Admit Date/Time: 01/02/20 08:23 Attending Provider: Jewel Trimble Admit Provider: Scotty Savage Primary Care Provider: Sharonda Rain Other Providers: Scotty Savage Other Interventions: Discharge Summary Assessment (RN) Last Done: 01/02/20 15:27
[2020-01-02] MEDS ORDERED: metroNIDAZOLE 500 MG TAB PO SCH (15:30)
[2020-01-02] MEDS ORDERED: CIPROFLOXACIN 500 MG TAB PO SCH (21:00)
== END 2020-01-02 16:50 | disposition home or self-care (01) ==
LOC: ASU 08:39 → 3W 08:39 → SUATTDRO 17:07